=== PATIENT | female | born 1965 | race Caucasian/White ===

== ENCOUNTER 2017-05-12 16:41 | Emergency (ER) | payer MEDICAID ==
[~2017-05-12] VITALS: Ht 160 cm; Wt 61.5 kg
[2017-05-12 16:48] VITALS: Ht 160 cm; Wt 61.5 kg
[2017-05-12 19:31] VITALS: BP 156/93; PULSE 99; RESP 18; TEMP 97.2
[2017-05-12] MEDS ORDERED: HYDROCODONE/APAP (5/325) TAB PO ONE (20:00)
[2017-05-12] MEDS ORDERED: DIPHTH/TET/ACEL PERTUSS (ADULT) 0.5 ML VIAL IM* ONE (20:00)
--- NOTE | 2017-05-12 20:25 | ERD ---
ER Documentation Chief Complaint Date/Time DATE: 05/12/17 TIME: 20:23 Chief Complaint PUNCTURE WOUND ON RT FOOT HPI This a 51-year-old female who presents the emergency department today complaining of some right foot pain and thinking that she stepped on something a few days ago. Patient states that she is currently being treated for gout in her big toe. States that she was walking around barefoot and remembers stepping on something but she was unsure what it was. Denies any fevers or chills. States she is currently taking Naprosyn for the gout.States she is unsure of her last tetanus. ROS All systems reviewed and are negative except as per history of present illness. Medications Home Meds Active Scripts Sulfamethoxazole/Trimethoprim* (Bactrim Ds* Tablet) 1 Each Tablet, 1 TAB PO BID for 7 Days, #14 TAB Prov:VEDA VELAZQUEZ PA-C 05/12/17 Hydrocodone/Acetaminophen ([place] 5-325 Tablet) 1 Each Tablet, 1 TAB PO Q6H Y for PAIN, #7 TAB Prov:VEDA VELAZQUEZ PA-C 05/12/17 Allergies Allergies: Coded Allergies: Penicillins (Verified Allergy, Unknown, 05/12/17) PMhx/Soc Medical and Surgical Hx: pt denies Surgical Hx Hx Miscellaneous Medical Probl: Yes (Gout) Hx Alcohol Use: No Hx Substance Use: No Hx Tobacco Use: Yes Smoking Status: Current every day smoker Physical Exam Vitals Vital Signs Date Time Temp Pulse Resp B/P Pulse Ox O2 Delivery O2 Flow Rate FiO2 05/12/17 19:31 97.2 99 18 156/93 100 Room Air 05/12/17 16:48 98.1 88 18 161/85 98 Physical Exam Const: sitting in wheelchair, NAD Head: Atraumatic Eyes: Normal Conjunctiva ENT: Normal External Ears, Nose and Mouth. Neck: Full range of motion..~ No meningismus. Resp: Clear to auscultation bilaterally Cardio: Regular rate and rhythm, no murmurs Abd: Soft, non tender, non distended. Normal bowel sounds Skin: No petechiae or rashes Ext: No cyanosis, or edema. Right foot With no obvious deformity. Mild erythema and tenderness to right great toe. Evidence of small area of swelling over lateral aspect of left-sided foot. No purulent drainage. Neur: Awake and alert Psych: Normal Mood and Affect Results 24 hrs Current Medications Medications (Trade) Dose Ordered Sig/Dian Route PRN Reason Start Time Stop Time Status Last Admin Dose Admin Acetaminophen/ Hydrocodone Bitart ([place] (5/325)) 1 tab ONCE ONCE PO 05/12/17 20:00 05/12/17 20:01 DC 05/12/17 20:10 Diphtheria/ Tetanus/Acell Pertussis (Adacel) 0.5 ml ONCE ONCE IM* 05/12/17 20:00 05/12/17 20:01 DC 05/12/17 20:14 Ibuprofen (Motrin) 800 mg ONCE ONCE PO 05/12/17 22:30 05/12/17 22:31 Trimethoprim/ Sulfamethoxazole (Bactrim (Ds)) 1 tab ONCE ONCE PO 05/12/17 22:30 05/12/17 22:31 DIAGNOSTIC IMAGING REPORT Patient: MATHEW FLORES : 1965 Age: 51 Sex: F MR #: [id number] DOS: 05/12/17 0000 Ordering MD: VEDA VELAZQUEZ PA-C Location: [facility] Room/Bed: PROCEDURE: XR Foot. CLINICAL INDICATION: Trauma to the right foot. Reference marker directed towards the medial aspect of the head of the first metatarsal. TECHNIQUE: AP, lateral and oblique views of the right foot was obtained. The images were reviewed on a PACS workstation. COMPARISON: None. FINDINGS: Hallux valgus and bunion. Otherwise, the bones of the foot appear intact, with no evidence of fracture, dislocation, or subluxation. The joint spaces are preserved. Bone mineralization is normal. No significant soft tissue swelling is seen. IMPRESSION: Hallux valgus and bunion, without acute fracture. RPTAT: [facility] Physician More Date Time Electronically viewed and signed by Physician More on 05/12/2017 21:01 RS/ CC: VEDA VELAZQUEZ PA-C Procedures/MDM This 51-year-old female who presents the emergency department today complaining of some left foot pain after she thinks she stepped on something a couple of days ago. I did obtain images given the trauma. Patient was also updated on her tetanus. Per the radiology report images of the right footHallux valgus and bunion without acute fracture. Joint space are preserved. There is no significant soft tissue swelling seen. There is no evidence of fracture, dislocation or subluxation. There is no mention of foreign body. Patient did appear to have a small area of pus in the area where she thinks she stepped on something. She did agree to let me place a small hole to drain the area with an 18-gauge needle. I did explain the risks and benefits of the procedure and the patient agreed to proceed. Wound was cleaned in the usual sterile fashion. Patient tolerated the procedure well there were no complications. Purulent discharge was drained from the area. Patient symptoms at this time is consistent with small abscess formation on bottom of right footAnd possible puncture wound.. There is no evidence of foreign body or retained foreign body. Patient was given a prescription for Bactrim and instructed to return in 48 hours for wound check. She was also given a short course of [place]. Patient was given [place] here in the emergency department and she still continued to complain of pain was therefore given Motrin. She was given crutches to help ambulate. Patient indicated that she was not going to make to the pharmacy today and was therefore given a first dose of Bactrim here in the emergency department.Patient is afebrile and otherwise well-appearing. Low suspicion for sepsis, deep space tracking infection. At this time the patient is stable for discharge and outpatient management. Patient should follow up with their PCP in the next 1-2 days. They may return to the emergency department sooner for any persistent or worsening of symptoms. Patient understood and agreed with the plan. Departure Diagnosis: Primary Impression: Puncture wound Additional Impression: Abscess Condition: VEDA Little PA-C May 12, 2017 20:25
--- NOTE | 2017-05-12 21:02 | RADRPT ---
PROCEDURE: XR Foot. CLINICAL INDICATION: Trauma to the right foot. Reference marker directed towards the medial aspect of the head of the first metatarsal. TECHNIQUE: AP, lateral and oblique views of the right foot was obtained. The images were reviewed on a PACS workstation. COMPARISON: None. FINDINGS: Hallux valgus and bunion. Otherwise, the bones of the foot appear intact, with no evidence of fract ure, dislocation, or subluxation. The joint spaces are preserved. Bone mineralization is normal. No significant soft tissue swelling is seen. IMPRESSION: Hallux valgus and bunion, without acute fracture. RPTAT: [facility] Physician More Date Time Electronically viewed and signed by Physician More on 05/12/2017 21:01 RS/
[2017-05-12] MEDS ORDERED: HYDR-906 PO (21:56)
[2017-05-12] MEDS ORDERED: SULF1TAB31 PO (21:56)
[2017-05-12] MEDS ORDERED: TRIMETHOPRIM/SULFAMETHOX (DS) TAB PO ONE (22:30)
[2017-05-12] MEDS ORDERED: IBUPROFEN 800 MG TAB PO ONE (22:30)
== END 2017-05-12 23:26 | disposition home or self-care (01) ==
LOC: FTE 16:41
DX: S91.331A Puncture wound without foreign body, right foot, initial encounter (principal); L02.611 Cutaneous abscess of right foot; F17.210 Nicotine dependence, cigarettes, uncomplicated; W22.8XXA Striking against or struck by other objects, initial encounter; Y92.9 Unspecified place or not applicable; Z23 Encounter for immunization
CPT/HCPCS: 73630; 90471; 90715; Z7502; Z7610

== ENCOUNTER 2019-03-18 08:49 | Emergency (ER) | payer MEDICAID, OTHER ==
[~2019-03-18] VITALS: Ht 167.6 cm; Wt 65.0 kg
[~2019-03-18 08:49] MED LIST: HYDR-4011 PO; SULF1TAB31 PO
[2019-03-18 08:56] VITALS: Ht 167.6 cm; Wt 65.0 kg
[2019-03-18] MEDS ORDERED: SOD CHLORIDE 0.9% 1,000 ML IV STA (09:08)
[2019-03-18] MEDS ORDERED: IODIXANOL LOCM 100 ML BTL ONE (09:23)
[2019-03-18] MEDS ORDERED: SOD CHLORIDE 0.9% 100 ML ONE (09:23)
[2019-03-18] MEDS ORDERED: DIPHTH/TET/ACEL PERTUSS (ADULT) 0.5 ML VIAL IM* ONE (09:30)
[2019-03-18] MEDS ORDERED: NALOXONE 2 MG SYG ONE (10:23)
[2019-03-18] MEDS ORDERED: NALOXONE 2 MG SYG IV ONE (10:30)
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
[2019-03-18 13:04] VITALS: BP 129/76; PULSE 80; RESP 16
== END 2019-03-18 13:05 | disposition home or self-care (01) ==
LOC: E/R 08:49
DX: S01.81XA Laceration without foreign body of other part of head, initial encounter (principal); F19.10 Other psychoactive substance abuse, uncomplicated; R07.9 Chest pain, unspecified; V49.40XA Driver injured in collision with unspecified motor vehicles in traffic accident, initial encounter; Z23 Encounter for immunization; Z87.891 Personal history of nicotine dependence
CPT/HCPCS: 12011; 36415; 70450; 70486; 71260; 72125; 74177; 80048; 80307; 85025; 85610; 85730; 90471; 90715; 96374; J2310; J7030; Q9967; Z7502; Z7610